=== PATIENT | male | born 1940 ===

== ENCOUNTER → 2018-11-26 13:39 | Outpatient (REF) | payer MEDICARE, SELFPAY ==
[2018-11-26 14:17] LABS: Add Manual Diff / Slide Review NO; Alanine Aminotransferase 19 IU/L (21-72); Albumin 3.4 g/dL (3.5-5.0); Albumin Globulin Ratio 1.2 (1.0-2.8); Alkaline Phosphatase 52 U/L (38-126); Aspartate Aminotransferase 14 IU/L (17-59); BUN Creatinine Ratio 19.2 (6-22); Basophils Absolute Auto 100 /uL (0-100); Basophils Percent Auto 2.1 % (0-2); Bilirubin Total 0.3 mg/dL (0.2-1.3); Blood Urea Nitrogen 23 mg/dL (9-20); Calcium 8.6 mg/dL (8.4-10.2); Carbon Dioxide 23 mmol/L (22-32); Chloride 108 mmol/L (98-107); Eosinophils Absolute Auto 400 /uL (0-450); Eosinophils Percent Auto 9.7 % (2-4); Estimated Glomerular Filt Rate 58.3 mL/min (>60); Globulin 2.9 g/dL (1.7-4.1); Glucose 76 mg/dL (80-110); HEMOLYSIS < 15 (0-50); Hematocrit 31.7 % (41-53); Hemoglobin 10.7 g/dL (13.5-17.5); Lymphocytes Absolute Auto 1100 /uL (1100-4500); Lymphocytes Percent Auto 24.6 % (25-40); Mean Corpuscular HGB Conc 33.7 % (30-36); Mean Corpuscular Hemoglobin 31.2 PG (26-34); Mean Corpuscular Volume 92.8 fL (80-100); Monocytes Absolute Auto 400 /uL (0-900); Monocytes Percent Auto 8.2 % (3-14); Neutrophils Absolute Auto 2500 /uL (1500-7000); Neutrophils Percent Auto 55.4 % (50-75); Platelet Count 265 X10^3/uL (150-400); Red Blood Cell Count 3.41 X10^6/uL (4.5-5.9); Red Cell Distribution Width 13.8 % (11.6-14.8); Sodium 139 mmol/L (137-145); Total Protein 6.3 g/dL (6.3-8.2); White Blood Cell Count 4.5 X10^3/uL (4.5-11.0)
[2018-11-26 14:37] LABS: Hemoglobin A1C% w Est Avg Glu 5.2 % (4.0-6.0)
[2018-11-26 14:50] LABS: Thyroid Stimulating Hormone 2.87 uIU/mL (0.47-4.68)
== END ==
LOC: LAB 13:39
PROVIDERS: Visit Provider Internal Medicine
DX: R73.01 Impaired fasting glucose (principal)
CPT/HCPCS: 36415; 80053; 83036; 84443; 85025

== ENCOUNTER → 2018-12-03 13:27 | Outpatient (REF) | payer MEDICARE, SELFPAY ==
[2018-12-03 14:34] LABS: HEMOLYSIS 16 (0-50); Iron 78 ug/dL (49-181)
[2018-12-03 14:45] LABS: Percent Iron Saturation 29 % (20-50); Total Iron Binding Capacity 269 ug/dL (261-462); Transferrin 192 mg/dL (206-381)
[2018-12-03 15:10] LABS: Ferritin 22.5 ng/mL (17.9-464)
[2018-12-03 15:41] LABS: Folate 6.3 ng/mL (2.76-20.0)
[2018-12-03 16:50] LABS: Vitamin D 25 Hydroxy (D3) 15.4 ng/mL (30.0-100.0)
[2018-12-06 22:45] LABS: Methylmalonic Acid 268 nmol/L (87-318)
== END ==
LOC: LAB 13:27
PROVIDERS: Visit Provider Internal Medicine
DX: R20.0 Anesthesia of skin (principal); R79.9 Abnormal finding of blood chemistry, unspecified
CPT/HCPCS: 36415; 82306; 82728; 82746; 83540; 83550; 83921

== ENCOUNTER → 2018-12-05 13:50 | Outpatient (REF) | payer MEDICARE, SELFPAY ==
[2018-12-05 14:17] LABS: Occult Blood 1 Negative (Negative)
== END ==
LOC: LAB 13:50
PROVIDERS: Visit Provider Internal Medicine
DX: R70.0 Elevated erythrocyte sedimentation rate (principal); R79.9 Abnormal finding of blood chemistry, unspecified
CPT/HCPCS: 82270

== ENCOUNTER → 2019-01-07 15:59 | Outpatient (REF) | payer MEDICARE, SELFPAY ==
[2019-01-07 16:49] LABS: Add Manual Diff / Slide Review NO; Basophils Absolute Auto 100 /uL (0-100); Basophils Percent Auto 1.4 % (0-2); Eosinophils Absolute Auto 700 /uL (0-450); Hematocrit 34.7 % (41-53); Hemoglobin 11.5 g/dL (13.5-17.5); Lymphocytes Absolute Auto 1300 /uL (1100-4500); Lymphocytes Percent Auto 26.8 % (25-40); Mean Corpuscular HGB Conc 33.3 % (30-36); Mean Corpuscular Volume 93.2 fL (80-100); Monocytes Absolute Auto 400 /uL (0-900); Monocytes Percent Auto 8.8 % (3-14); Neutrophils Absolute Auto 2500 /uL (1500-7000); Platelet Count 315 X10^3/uL (150-400); Red Blood Cell Count 3.72 X10^6/uL (4.5-5.9); Red Cell Distribution Width 13.7 % (11.6-14.8)
[2019-01-07 17:10] LABS: Alanine Aminotransferase 19 IU/L (21-72); Albumin Globulin Ratio 1.3 (1.0-2.8); Alkaline Phosphatase 52 U/L (38-126); Aspartate Aminotransferase 17 IU/L (17-59); BUN Creatinine Ratio 18.3 (6-22); Bilirubin Total 0.4 mg/dL (0.2-1.3); Blood Urea Nitrogen 22 mg/dL (9-20); Calcium 9.1 mg/dL (8.4-10.2); Carbon Dioxide 25 mmol/L (22-32); Chloride 105 mmol/L (98-107); Estimated Glomerular Filt Rate 58.3 mL/min (>60); Glucose 80 mg/dL (80-110); HEMOLYSIS < 15 (0-50); Potassium 4.4 mmol/L (3.4-5.1); Sodium 138 mmol/L (137-145)
== END ==
LOC: LAB 15:59
PROVIDERS: Visit Provider Internal Medicine
DX: D64.9 Anemia, unspecified (principal)
CPT/HCPCS: 80053; 85025